=== PATIENT | female | born 2000 | race African-American/Black ===

== ENCOUNTER 2020-01-15 16:14 | Emergency (ER) | payer MEDICAID, OTHER ==
[~2020-01-15] VITALS: Ht 167.6 cm; Wt 65.0 kg
[~2020-01-15 16:14] MED LIST: ALBUTEROL
[2020-01-15] MEDS ORDERED: SODIUM CHLORIDE 0.9% 1,000 ML IV ONE (16:26)
[2020-01-15] MEDS ORDERED: OLANZAPINE 10 MG/VIAL IM ONE (16:30)
[2020-01-15] MEDS ORDERED: LORAZEPAM 2MG/ML CPJ IM ONE (16:30)
[2020-01-15 17:24] LABS: BASOPHILS % 0.5 % (0.0-2.0); CHLORIDE 108 mEq/L (98-107); HEMATOCRIT. 37.7 % (36.0-48.0); HEMOGLOBIN. 12.2 g/dL (12.0-16.0); LYMPHOCYTES % 13.2 % (20.0-50.0); MEAN CORPUSCULAR HEMOGLOBIN 24.8 pg (28.0-32.0); MEAN CORPUSCULAR VOLUME 76.8 fL (81.0-99.0); MEAN PLATELET VOLUME 9.4 fl (7.4-10.4); MONOCYTES % 5.9 % (2.0-8.0); NEUTROPHILS % 79.4 % (40.0-76.0); PLATELET 263 x1000/uL (130-400); RED BLOOD CELL COUNT 4.91 mill/uL (4.2-5.4); RED CELL DISTRIBUTION WIDTH 16.3 % (11.6-14.6)
[2020-01-15 17:28] LABS: ETHANOL BLOOD < 10 mg/dL
[2020-01-15 17:29] LABS: HCG SCREEN NEGATIVE
[2020-01-15 18:47] LABS: CLARITY URINE CLEAR (CLEAR); COLOR URINE ORANGE (YELLOW); KETONES URINE TRACE (NEGATIVE); LEUKOCYTE ESTERASE URINE 1+ (NEGATIVE); NITRITE URINE NEGATIVE (NEGATIVE); OCCULT BLOOD URINE 3+ (NEGATIVE); PH URINE 5.5 (4.5-8.0); PROTEIN URINE 2+ (NEGATIVE); SPECIFIC GRAVITY URINE 1.019 (1.005-1.030)
[2020-01-15 19:09] LABS: *AMPHETAMINES SCREEN URINE NEGATIVE (NEGATIVE); *BARBITURATES SCREEN URINE NEGATIVE (NEGATIVE)
[2020-01-15 19:10] LABS: *COCAINE SCREEN URINE NEGATIVE (NEGATIVE); METHADONE URINE SCREEN NEGATIVE (NEGATIVE); OPIATES URINE SCREEN NEGATIVE (NEGATIVE); PHENCYCLIDINE URINE SCREEN NEGATIVE (NEGATIVE)
[2020-01-15 19:12] LABS: *BENZODIAZEPINES SCREEN URINE PRESUMTIVE POSITIVE (NEGATIVE); CANNABINOID URINE SCREEN PRESUMTIVE POSITIVE (NEGATIVE)
[2020-01-15 20:12] VITALS: BP 123/67
== END 2020-01-15 20:15 | disposition home or self-care (01) ==
LOC: ER 16:14
DX: N39.0 Urinary tract infection, site not specified (principal); F12.10 Cannabis abuse, uncomplicated
CPT/HCPCS: 36415; 80053; 80305; 80307; 80320; 80329; 81003; 81025; 84703; 85025; 96372; 99285; J2060; J3490; J7030; G0480